=== PATIENT | female | born 1985 | race African-American/Black ===

== ENCOUNTER 2024-03-12 22:50 | Emergency (ER) | payer OTHER ==
[2024-03-12 22:57] VITALS: BP 152/82; PULSE 83; RESP 17; TEMP 97.6; BMI 27.1
[2024-03-12] MEDS ORDERED: LIDOCAINE 4% PATCH TP ONE (23:36)
[2024-03-12] MEDS ORDERED: ACETAMINOPHEN 500 MG TABLET (FP) ONE (23:36)
[2024-03-12] MEDS ORDERED: KETOROLAC TROMETHAMINE 15 MG/ML VIAL ONE ×2 (23:36→23:37)
[2024-03-12] MEDS: LIDOCAINE 5% TOPICAL PATCH TP ONE (23:45)
[2024-03-12] MEDS: ACETAMINOPHEN 325 MG TABLET (FP) PO ONE (23:46)
[2024-03-12] MEDS: KETOROLAC TROMETHAMINE 30 MG/1 ML VIAL IM ONE (23:46)
[2024-03-13 00:46] LABS: HCG,QUALITATIVE URINE Negative
[2024-03-13 00:47] LABS: EPI CELLS 12 /uL (0-25.1); HYALINE CASTS 0 /uL (0-3.1); PH,URINE 6.5 (5.0-8.0); URINE APPEARANCE CLEAR; URINE BACTERIA 193 /uL (0-1359); URINE BILIRUBIN NEGATIVE (NEGATIVE); URINE COLOR YELLOW; URINE GLUCOSE (UA) NEGATIVE (NEGATIVE); URINE KETONE NEGATIVE (NEGATIVE); URINE LEUK ESTERASE 1+ (NEGATIVE); URINE NITRITE NEGATIVE (NEGATIVE); URINE PROTEIN NEGATIVE (NEGATIVE); URINE RBC 16 /uL (0-23.9); URINE UROBILINOGEN 0.2 mg/dL (0.2-1.0); URINE WBC 25 /uL (0-25.8)
[2024-03-13] MEDS ORDERED: CEPHALEXIN MONOHYDRATE 500 MG CAPSULE (UD) ONE (01:15)
[2024-03-13] MEDS: CEPHALEXIN MONOHYDRATE 500 MG CAPSULE (UD) PO ONE (01:16)
[2024-03-13] MEDS ORDERED: LIDOCAINE PATCH REMOVAL MC ONE (11:00)
== END 2024-03-13 02:45 | disposition home or self-care (01) ==
LOC: JER 22:50
PROC: 3E0133Z Introduction of Anti-inflammatory into Subcutaneous Tissue, Percutaneous Approach (ICD-10-PCS; principal; 2024-03-12)
DX: N39.0 Urinary tract infection, site not specified (principal); M54.9 Dorsalgia, unspecified; R10.9 Unspecified abdominal pain
CPT/HCPCS: 71046-TC-FY; 81003; 84703; 99284-25